=== PATIENT | female | born 1995 | race African-American/Black ===

== ENCOUNTER 2019-02-09 04:55 | Emergency (ER) | payer OTHER ==
[~2019-02-09] VITALS: Ht 175.3 cm; Wt 61.2 kg
[2019-02-09] MEDS ORDERED: KETO10TA2 PO (05:54)
[2019-02-09] MEDS ORDERED: CEFUROXIME500 MG PO (05:54)
== END 2019-02-09 14:14 | disposition home or self-care (01) ==
LOC: ER 04:55
DX: H66.91 Otitis media, unspecified, right ear (principal)